=== PATIENT | male | born 1965 | race African-American/Black ===

== ENCOUNTER 2024-10-03 11:10 | Inpatient (IN) | payer OTHER ==
[2024-10-03 11:50] VITALS: BMI 19.5
[2024-10-03] MEDS ORDERED: LOPERAMIDE HCL 2 MG CAPSULE PO PRN (12:34)
[2024-10-03] MEDS ORDERED: BENZOCAINE/MENTHOL (CHLORASEPTIC ) LOZENGE MM PRN (12:34)
[2024-10-03] MEDS ORDERED: IBUPROFEN 400 MG TABLET (FP) PO PRN (12:34)
[2024-10-03] MEDS ORDERED: NALOXONE (NARCAN) HCL 4 MG/0.1 ML SPRAY NS PRN (12:34)
[2024-10-03] MEDS ORDERED: BENZONATATE 200 MG CAPSULE PO PRN (12:34)
[2024-10-03] MEDS ORDERED: MAGNESIUM HYDROX 2400MG/30ML ORAL SUSPENSION 30 ML CUP PO PRN (12:34)
[2024-10-03] MEDS ORDERED: MAG HYDROX/AL HYDROX/SIMETH 30 ML UNIT-DOSE CUP PO PRN (12:34)
[2024-10-03] MEDS ORDERED: POLYETHYLENE GLYCOL (HEALTHYLAX) 3350 17 GM PACKET PO PRN (12:34)
[2024-10-03] MEDS ORDERED: ACETAMINOPHEN 325 MG TABLET (FP) PO PRN (12:34)
[2024-10-03] MEDS ORDERED: guaiFENesin 600 MG TABLET.ER (FP) PO PRN (12:34)
[2024-10-03] MEDS: TUBERCULIN PPD 5 TU/0.1ML SYRINGE (IN PATIENT USE ONLY) ID ONE (15:56)
[2024-10-03] MEDS: THIAMINE 100 MG TABLET PO SCH (21:15)
[2024-10-03] MEDS: MELATONIN 5 MG TABLETS PO SCH (21:15)
[2024-10-04 09:40] LABS: HEMATOCRIT 37.5 % (40.1-51.0); HEMOGLOBIN 12.1 g/dL (13.7-17.5); MCHC 32.3 g/dl (32.3-36.5); MEAN CELL VOLUME 82.1 fl (79.0-92.2); PLATELET COUNT 261 x10^3/uL (163-337)
[2024-10-04 10:23] LABS: CHLORIDE 108 mmol/L (98-107); POTASSIUM 3.3 mmol/L (3.5-5.1); SODIUM 141 mmol/L (136-145)
[2024-10-04 10:29] LABS: SGOT/AST 15 U/L (15-37); SGPT/ALT 15 U/L (13-61)
[2024-10-04 10:30] LABS: BILIRUBIN,TOTAL 0.5 mg/dL (0.2-1)
[2024-10-04 10:31] LABS: TOT PROT 6.4 g/dl (6.4-8.2)
[2024-10-04 10:32] LABS: ALK PHOS 93 U/L (45-117)
[2024-10-04] MEDS: PRENATAL VITAMINS W/ FOLIC ACID TABLET (FP) PO SCH (10:57)
[2024-10-04 11:36] LABS: SYPHILIS W/ RPR CONF NON-REACTIVE (NONREACTIVE)
[2024-10-04 11:56] LABS: ALBUMIN 3.4 g/dl (3.4-5.0); ANION GAP 9 mmol/L (4-13); BLOOD UREA NITROGEN 17.1 mg/dL (7-18); CO2 24 mmol/L (21-32); CREATININE 0.8 mg/dL (0.55-1.3); GLUCOSE,RANDOM 127 mg/dL (74-106)
[2024-10-04 12:04] LABS: HCV DIAGNOSTIC IN-HOUSE W/RFLX NON-REACTIVE (NONREACTIVE)
[2024-10-04] MEDS: PNEUMOC 20-VAL CONJ-DIP CRM/PF 0.5 ML SYRINGE IM ONE (13:48)
[2024-10-04] MEDS: POTASSIUM CHLORIDE ORAL LIQUID 20 MEQ/15 ML PO ONE (17:20)
[2024-10-04 21:24] LABS: URINE APPEARANCE TURBID; URINE BILIRUBIN NEGATIVE (NEGATIVE); URINE COLOR DK YELLOW; URINE GLUCOSE (UA) NEGATIVE (NEGATIVE); URINE KETONE TRACE (NEGATIVE); URINE LEUK ESTERASE NEGATIVE (NEGATIVE); URINE NITRITE NEGATIVE (NEGATIVE); URINE PROTEIN TRACE (NEGATIVE)
[2024-10-12] MEDS: MELATONIN 5 MG TABLETS PO SCH (21:08)
[2024-10-14] MEDS: IBUPROFEN 600 MG TABLET (FP) PO PRN (02:43)
[2024-10-17 05:24] VITALS: RESP 16
[2024-10-19 05:27] VITALS: BP 123/63; PULSE 88; TEMP 97.7
== END 2024-10-19 10:09 | disposition home or self-care (01) | DRG 895 ==
LOC: YASAS 11:10 → Y3NR 12:46 → Y3W 10-04 14:05
PROVIDERS: ADMIT Allergy & Immunology; ATTEND Psychiatry & Neurology Pain Medicine
PROC: HZ42ZZZ Group Counseling for Substance Abuse Treatment, Cognitive-Behavioral (ICD-10-PCS; principal; 2024-10-03)
DX: F14.20 Cocaine dependence, uncomplicated (principal); F10.20 Alcohol dependence, uncomplicated; F11.10 Opioid abuse, uncomplicated; F17.290 Nicotine dependence, other tobacco product, uncomplicated; F41.9 Anxiety disorder, unspecified; G47.00 Insomnia, unspecified; H90.3 Sensorineural hearing loss, bilateral; M54.40 Lumbago with sciatica, unspecified side; G89.29 Other chronic pain
CPT/HCPCS: 36415; 80053; 80305; 80307; 81003; 82962; 84132; 85027; 86780; 86803; 87811; 90677; 93005; 93010; G0009